=== PATIENT | female | born 1990 | race American Indian/Alaskan Native ===

== ENCOUNTER 2018-08-28 12:58 | Emergency (ER) | payer MEDICAID, OTHER ==
[2018-08-28 13:33] VITALS: BP 150/94
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
== END 2018-08-28 15:51 | disposition home or self-care (01) ==
LOC: ED 12:58
DX: M54.9 Dorsalgia, unspecified (principal); V49.49XA Driver injured in collision with other motor vehicles in traffic accident, initial encounter; X58.XXXA Exposure to other specified factors, initial encounter; Y93.89 Activity, other specified; Y92.89 Other specified places as the place of occurrence of the external cause; Y99.8 Other external cause status

== ENCOUNTER 2020-10-11 08:52 | Inpatient (IN) | payer OTHER ==
[2020-10-11] MEDS ORDERED: DINOPROSTONE 10 MG VAG SUPP VG NR (11:27)
[2020-10-11] MEDS ORDERED: TERBUTALINE 1 MG/1 ML INJ SUB-Q PRN (11:27)
[2020-10-11] MEDS ORDERED: miSOPROStol 200 MCG TAB PR PRN (11:27)
[2020-10-11] MEDS ORDERED: fentaNYL 100 MCG/2 ML INJ IV PRN (11:27)
[2020-10-11] MEDS ORDERED: MINERAL OIL 30 ML ORAL LIQD PO PRN (11:27)
[2020-10-11] MEDS ORDERED: BUTORPHANOL 2 MG/1 ML INJ IV PRN ×2 (11:27)
[2020-10-11] MEDS ORDERED: ePHEDrine SULFATE 50 MG/1 ML INJ IV PRN ×2 (11:27→19:29)
[2020-10-11] MEDS ORDERED: METHYLERGONOVINE MALEATE 0.2 MG/ML VIAL IM PRN (11:27)
[2020-10-11] MEDS ORDERED: CARBOPROST TROMETHAMINE 250 MCG/1 ML INJ IM PRN (11:27)
[2020-10-11] MEDS ORDERED: LIDOCAINE (2%) 20 MG/1 ML VIAL 20 ML MDV INFILTRATI ONE (11:27)
[2020-10-11] MEDS ORDERED: OXYTOCIN 10 UNIT/1 ML INJ IM PRN (11:27)
[2020-10-11] MEDS ORDERED: LOPERAMIDE 2 MG CAP PO PRN (11:27)
[2020-10-11] MEDS ORDERED: AMPICILLIN/NS 2 GM/100 ML 2 GM/100 ML BAG IV ONE ×2 (11:27→20:00)
[2020-10-11] MEDS ORDERED: OXYTOCIN DRIP 30 UNITS/500 ML BAG IV SCH ×2 (12:00)
--- NOTE | 2020-10-11 12:13 | History and Physical Report ---
History of Present Illness Date of examination: 10/11/20 Date of admission: 10/11/20 08:52 Chief complaint: " I was sent by my doctor for an induction" History of present illness: 30 y/o single AA presents today @ 37.3 wks for an IOL r/t GDM and morbid obesity. Pt initiated her pnc @ 9 6/7 wks at [facility]. She has a long med which includes GDM takes Metformin and Insulin, morbid obesity, asthma uses Albuterol inhaler, Bipolar disorder (no meds, suicide attemp x 2 teenager), Hgb C trait, + HSV, + GBS, chtn, varicella NI, and hx pre- eclampsia. Neg surgical hx. Family hx of Bipolar, heart disease, htn, autism, anemia, and hyperlipidemia. Pt was admitted to L&D for a cervical IOL. 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 History: herpes, other (GBS) Family/Genetic History: heart disease, hypertension, cancer, other (BIPOLAR DISORDER, ANEMIA, HYPERLIPIDEMIA, AUTISM) Social history: single, full code - Obstetrical History Expected Date of Delivery: 10/29/20 Actual Gestation: 37 Week(s) 3 Day(s) : 2 Para: 1 Hx # Term Pregnancies: 1 Number of Living Children: 1 Medications and Allergies Allergies Allergy/AdvReac Type Severity Reaction Status Date / Time No Known Allergies Allergy Verified 10/11/20 10:07 Home Medications Medication Instructions Recorded Confirmed Last Taken Type Lancets 0 box AD 1XW PRN 05/08/13 05/08/13 05/04/13 12:00 History Pnv,Calcium 72/Iron,Carb/Folic 1 tab PO DAILY 05/08/13 05/08/13 05/04/13 10:00 History [ Plus Iron Tablet] glyBURIDE [Glyburide] 1 tab PO DAILY 05/08/13 05/08/13 05/04/13 History 2.5mg Acetaminophen/Codeine [Tylenol 1 tab PO Q6H PRN #15 tab 08/28/18 Unknown Rx /Codeine # 3 tab] Cyclobenzaprine HCl [Flexeril 5 MG 5 mg PO BID PRN #10 tab 08/28/18 Unknown Rx TAB] Ibuprofen [Motrin] 800 mg PO Q8HR PRN #30 tablet 08/28/18 Unknown Rx predniSONE [Deltasone] 20 mg PO DAILY #15 tablet 08/28/18 Unknown Rx Active Meds: Active Medications Butorphanol Tartrate (Butorphanol 2 Mg/1 Ml Inj) 1 mg IV Q2H PRN PRN Reason: Pain, Moderate(4-6) LABOR PAIN Butorphanol Tartrate (Butorphanol 2 Mg/1 Ml Inj) 2 mg IV Q2H PRN PRN Reason: Pain , Severe (7-10) Carboprost Tromethamine (Carboprost Tromethamine 250 Mcg/1 Ml Inj) 250 mcg IM ONCE PRN PRN Reason: Uterine Bleeding Dinoprostone (Dinoprostone 10 Mg Vag Supp) 10 mg VG ONCE ONE Stop: 10/11/20 11:28 Ephedrine Sulfate (Ephedrine Sulfate 50 Mg/1 Ml Inj) 10 mg IV Q2M PRN PRN Reason: Hypotension Fentanyl (Fentanyl 100 Mcg/2 Ml Inj) 100 mcg IV Q2H PRN PRN Reason: Pain,Severe (7-10) LABOR PAIN Oxytocin/Sodium Chloride (Pitocin/Ns 30 Unit/500ml) 30 units in 500 mls @ 2 mls/hr IV TITR TANIKA; Protocol Lactated Ringer's (Lactated Ringers) 1,000 mls @ 125 mls/hr IV DIRECT TANIKA Oxytocin/Sodium Chloride (Pitocin/Ns 30 Unit/500ml) 30 units in 500 mls @ 40 mls/hr IV TITR TANIKA; Protocol Ampicillin Sodium (Ampicillin/Ns 2 Gm/100 Ml) 2 gm in 100 mls @ 100 mls/hr IV ONCE ONE; Protocol Stop: 10/11/20 12:26 Ampicillin Sodium (Ampicillin/Ns 1 Gm/50 Ml) 1 gm in 50 mls @ 100 mls/hr IV Q4H TANIKA; Protocol Lidocaine (Lidocaine (2%) 20 Mg/1 Ml Vial 20 Ml Mdv) 20 ml INFILTRATI ONCE ONE Stop: 10/11/20 11:28 Loperamide HCl (Loperamide 2 Mg Cap) 2 mg PO ONCE PRN PRN Reason: give with Hemabate Methylergonovine Maleate (Methylergonovine Maleate 0.2 Mg/Ml Vial) 0.2 mg IM ONCE PRN PRN Reason: Uterine Bleeding Mineral Oil (Mineral Oil 30 Ml Oral Liqd) 30 ml PO QHS PRN PRN Reason: Constipation Misoprostol (Misoprostol 200 Mcg Tab) 800 mcg WA ONCE PRN PRN Reason: Uterine Bleeding Oxytocin (Oxytocin 10 Unit/1 Ml Inj) 10 unit IM ONCE PRN PRN Reason: Uterine Bleeding Terbutaline Sulfate (Terbutaline 1 Mg/1 Ml Inj) 0.25 mg SUB-Q ONCE PRN PRN Reason: Hyperstimulation/Hypertonicity Review of Systems All systems: negative Eyes: deferred Ears, nose, mouth and throat: deferred Breasts: normal Genitourinary: normal appearance Rectal Exam: deferred - Vital Signs Vital signs: Vital Signs Pulse BP 88 114/70 10/11/20 09:42 10/11/20 09:42 Temp Pulse Resp BP Pulse Ox 97.7 F 83 20 116/69 98 10/11/20 09:44 10/11/20 11:49 10/11/20 09:44 10/11/20 11:47 10/11/20 11:49 - Physical Exam Breasts: Positive: normal Abdomen: Positive: normal appearance, soft, normal bowel sounds, other (GRAVID) Genitourinary (Female): Positive: normal external genitalia, normal perenium Vulva: both: normal Vagina: Positive: normal moisture Uterus: Positive: enlarged, normal contour, other (GRAVID) Anus/Rectum: Positive: normal perianal skin Extremities: Positive: normal - Obstetrical FHR: auscultation normal, category 1 Uterine Contraction Monitor Mode: External Cervical Dilatation: 1.5 Cervical Effacement Percentage: 60 station: -4 Uterine Contraction Pattern: Irregular Uterine Tone Measurement Phase: Resting Uterine Contraction Intensity: Mild Results All other labs normal. Assessment and Plan A: IUP@ 37.3 wks Morbid obesity, GDM (Metformin and Insulin) Asthma uses Albuterol prn Bipolar Disorder (no meds, suicide attempt x 2 teenager) Hgb C trait Varicella NI HSV II +GBS CHTN, Hx preeclampsia Son with Autism p: Admit to L&D for cervidil IOL Continuos monitoring GBS protocal Baseline PIH labs Notify NICU MD to manage GDM Offer Varicella vaccine pp Mental health consult pp Anticipate - Patient Problems (1) Supervision of normal IUP (intrauterine ) in multigravida Current Visit: Yes Status: Acute (2) Hypertension Current Visit: Yes Status: Acute (3) GDM (gestational diabetes mellitus) Current Visit: Yes Status: Acute (4) Bipolar 1 disorder Current Visit: Yes Status: Acute (5) Asthma Current Visit: Yes Status: Acute (6) Maternal varicella, non-immune Current Visit: Yes Status: Acute (7) HSV (herpes simplex virus) anogenital infection Current Visit: Yes Status: Acute (8) Hemoglobin C trait Current Visit: Yes Status: Acute
[2020-10-11] MEDS ORDERED: DEXTROSE 50% IN WATER (25GM) 50 ML SYRINGE IV PRN (12:50)
[2020-10-11 13:52] LABS: Mean Corpuscular HGB Conc 37 % (30-34); Mean Corpuscular Volume 83 fl (79-97); Platelet Count 251 K/mm3 (140-440); Red Blood Count 4.17 M/mm3 (3.65-5.03); Red Cell Distribution Width 13.5 % (13.2-15.2)
[2020-10-11 13:58] LABS: Hematocrit 34.6 % (30.3-42.9); Hemoglobin 12.7 gm/dl (10.1-14.3)
[2020-10-11 14:15] LABS: Alanine Aminotransferase 17 units/L (7-56); Uric Acid 4.4 mg/dL (3.5-7.6)
[2020-10-11] MEDS ORDERED: AMPICILLIN/NS 1 GM/50 ML 1 GM/50 ML BAG IV SCH (16:00)
[2020-10-11] MEDS: LACTATED RINGERS 1,000 ML IV SCH ×2 (19:25→20:16)
[2020-10-11] MEDS ORDERED: NALOXONE 2 MG/2 ML INJ IV PRN (19:29)
--- NOTE | 2020-10-11 19:29 | Anesthesia Consultation ---
Anesthesia Consult and Med Hx Date of service: 10/11/20 - Airway Anesthetic Teeth Evaluation: Good ROM Head & Neck: Adequate Mental/Hyoid Distance: Adequate Mallampati Class: Class II Intubation Access Assessment: Probably Good - Pulmonary Exam CTA: Yes - Cardiac Exam Cardiac Exam: RRR - Pre-Operative Health Status ASA Pre-Surgery Classification: ASA3 Proposed Anesthetic Plan: Epidural - Pulmonary Hx Asthma: Yes COPD: No Hx Pneumonia: No - Cardiovascular System Hx Hypertension: Yes - Central Nervous System Hx Seizures: No Hx Psychiatric Problems: No - Endocrine Hx Renal Disease: No Hx End Stage Renal Disease: No Hx Insulin Dependent Diabetes: Yes Hx Hypothyroidism: No Hx Hyperthyroidism: No - Hematic Hx Anemia: No Hx Sickle Cell Disease: No - Other Systems Hx Alcohol Use: No Hx Obesity: Yes
[2020-10-11] MEDS ORDERED: fentaNYL-BUPIV 2 MCG/ML-0.125% 200 MCG/100 ML BAG EPIDURAL SCH (20:00)
[2020-10-11] MEDS: INSULIN REGULAR, HUMAN 100 UNITS/1 ML SUB-Q PRN (20:13)
[2020-10-12] MEDS ORDERED: AMPICILLIN/NS 1 GM/50 ML 1 GM/50 ML BAG IV SCH
[2020-10-12] MEDS: LACTATED RINGERS 1,000 ML IV SCH ×3 (02:54→14:04)
[2020-10-12] MEDS ORDERED: AMPICILLIN/NS 2 GM/100 ML 2 GM/100 ML BAG IV ONE (12:00)
--- NOTE | 2020-10-12 13:42 | Progress Note ---
Labor Epidural - Labor Epidural Start Time: 13:11 Stop Time: 13:33 Performed by:: YAMILE BRAVO Procedure: Patient is requesting epidural for labor pain. H&P, and labs reviewed. Procedure explained, questions answered, consent obtained. Patient in sitting position with blood pressure cuff and pulse ox on and working. Timeout performed immediately before start of procedure. Sterile chlorahexadine 0.5% prep/drape. 3 mL 1% lidocaine skin wheal at L[3]-L[4]. 18-gauge [place] epidural needle advanced to [id number] with saline at 9 cm. Epidural catheter advanced to 15 cm, negative aspiration for blood and csf, negative test dose 3 ml 1.5% lidocaine with epinephrine. Epidural dexmedetomidine [30] mcg administered. Sterile steri-strips and tegaderm applied, followed by tape reinforcement. Patient tolerated procedure well. Lam ELLIS
--- NOTE | 2020-10-12 17:32 | Event Note ---
Date: 10/12/20 Assumed care of patient. SVE /-1.
[2020-10-12] MEDS ORDERED: LANOLIN/ZINC/DIMETHICONE (LANSINOH) 7 GM TP PRN (19:16)
[2020-10-12] MEDS ORDERED: PROMETHAZINE 25 MG TAB PO PRN (19:16)
[2020-10-12] MEDS ORDERED: diphenhydrAMINE 25 MG CAP PO PRN (19:16)
[2020-10-12] MEDS ORDERED: WITCH HAZEL/ GLYCERIN PAD TP PRN (19:16)
[2020-10-12] MEDS ORDERED: MAGNESIUM HYDROXIDE (MOM) ORAL LIQD UDC PO PRN (19:16)
[2020-10-12] MEDS ORDERED: ONDANSETRON 4 MG/2 ML INJ IV PRN (19:16)
[2020-10-12] MEDS ORDERED: PROMETHAZINE 25 MG RECT SUPP PR PRN (19:16)
[2020-10-12] MEDS ORDERED: miSOPROStol 200 MCG TAB PR ONE (19:20)
[2020-10-12] MEDS ORDERED: METHYLERGONOVINE MALEATE 0.2 MG/ML VIAL IM ONE (19:21)
--- NOTE | 2020-10-12 19:35 | Procedure Note ---
OB Delivery Note - Delivery Date of Delivery: 10/12/20 Surgeon: MARYANNE CID Estimated blood loss: 500cc - Vaginal Delivery presentation: vertex Delivery position: OA Intrapartum events: hemorrhage Delivery induction: oxytocin Delivery monitor: external FHT, external uterine Route of delivery: Delivery placenta: spontaneous Delivery cord: 3 umbilical vessels Delivery laceration: 1st degree Delivery repair: vicryl Anesthesia: epidural Delivery comments: Spontaneous vaginal delivery at 18:41 of liveborn male infant weighing 7 lb. 4 oz. over 1st degree perineal laceration with apgars of 8/9. Epidural anesthesia. Loose nuchal cord times 1, manually reduced. was atraumatic. Baby was placed skin to skin with mom immediately after delivery; spontaneous cry and respirations. Baby suctioned with bulb syringe and dried with warm towels. 3 vessel cord double clamped and cut; baby taken to radiant warmer for further suctioning. Spontaneous delivery of intact placenta and membranes at 18:44; EBL 500 cc (QBL 850 cc per RN). Pitocin, bimanual uterine massage, rectal Cytotec, and IM Methergine given for uterine atony. Fundus now firm and midline and lochia is scant. First degree perineal laceration repaired with 2-0 vicryl. No other lacerations noted. Vaginal sweep negative. Sponge count correct. Stat H&H ordered. Mother and baby stable.
[2020-10-12] MEDS ORDERED: IBUPROFEN 600 MG TAB PO SCH (20:00)
[2020-10-12 20:21] LABS: Hematocrit 34.8 % (30.3-42.9); Hemoglobin 12.3 gm/dl (10.1-14.3)
[2020-10-13] MEDS: HYDROcodone/ACETAMINOPHEN 5-325 MG TAB PO PRN ×4 (00:56→23:55)
[2020-10-13] MEDS: INSULIN REGULAR, HUMAN 100 UNITS/1 ML SUB-Q PRN (00:57)
[2020-10-13] MEDS: FERROUS SULFATE 325 MG TAB PO SCH ×3 (00:57→21:29)
[2020-10-13 09:15] LABS: Hemoglobin 12.5 gm/dl (10.1-14.3)
--- NOTE | 2020-10-13 16:41 | Post Anesthesia Evaluation ---
- Post Anesthesia Evaluation Patient Participated: Yes Airway Patent: Yes Stable Respiratory Function: Yes Nausea/Vomiting: No Temp > 96.8F: Yes Pain Manageable: Yes Adequeate Hydration: Yes Anesthesia Complications: No Block Receding Appropriately: Yes Patient on Ventilator: No
--- NOTE | 2020-10-13 17:34 | Progress Note ---
Assessment and Plan PPD #1 A: S/P P: Continue routine pp care D/C home tomm if stable - Patient Problems (1) Supervision of normal IUP (intrauterine ) in multigravida Current Visit: Yes Status: Acute (2) Hypertension Current Visit: Yes Status: Acute (3) GDM (gestational diabetes mellitus) Current Visit: Yes Status: Acute (4) Bipolar 1 disorder Current Visit: Yes Status: Acute (5) Asthma Current Visit: Yes Status: Acute (6) Maternal varicella, non-immune Current Visit: Yes Status: Acute (7) HSV (herpes simplex virus) anogenital infection Current Visit: Yes Status: Acute (8) Hemoglobin C trait Current Visit: Yes Status: Acute Subjective - Subjective Date of service: 10/13/20 Principal diagnosis: s/p Interval history: 30 y/o single AA presents today @ 37.3 wks for an IOL r/t GDM and morbid obesity. Pt initiated her pnc @ 9 6[address] [facility]. She has a long med which includes GDM takes Metformin and Insulin, morbid obesity, asthma uses Albuterol inhaler, Bipolar disorder (no meds, suicide attemp x 2 teenager), Hgb C trait, + HSV, + GBS, chtn, varicella NI, and hx pre- eclampsia. Neg surgical hx. Family hx of Bipolar, heart disease, htn, autism, anemia, and hyperlipidemia. Pt was admitted to L&D for a cervical IOL. Labs: A pos AB screen neg Rubella Immune Varicella NI VDRL/HIV neg GC/Chly/Trich/ HBsAg neg Plt 316 H&H 13.5/39.5 Patient reports: appetite normal, voiding normally, pain well controlled, ambulating normally : doing well Objective - Vital Signs Latest vital signs: Vital Signs Temp Pulse Resp BP BP Pulse Ox 10/13/20 17:11 16 10/13/20 12:37 98.1 F 94 H 20 127/78 100 10/13/20 09:31 16 10/13/20 08:51 97.8 F 88 20 119/76 100 10/13/20 05:16 98.5 F 20 128/83 10/13/20 05:15 86 100 10/13/20 00:08 98.2 F 88 20 115/69 100 10/12/20 20:55 97.9 F 83 20 136/80 100 10/12/20 20:20 84 132/67 10/12/20 20:06 86 129/60 10/12/20 19:45 86 123/70 10/12/20 19:15 98.5 F 19 10/12/20 19:05 90 114/69 10/12/20 18:56 93 H 113/62 10/12/20 18:45 98.4 F 10/12/20 18:38 140 H 100 10/12/20 18:37 122 H 140/63 10/12/20 18:33 152 H 99 10/12/20 18:30 14 10/12/20 18:29 38 L 0 L 10/12/20 18:28 92 H 100 10/12/20 18:23 85 100 10/12/20 18:18 82 100 10/12/20 18:13 87 100 10/12/20 18:08 84 119/71 100 10/12/20 18:03 92 H 100 10/12/20 17:58 89 99 10/12/20 17:53 91 H 99 10/12/20 17:48 84 99 10/12/20 17:43 92 H 98 10/12/20 17:38 95 H 144/81 98 10/12/20 17:37 92 H 94 10/12/20 17:33 92 H 96 Intake and Output 10/13/20 10/13/20 10/13/20 06:59 14:59 22:59 Intake Total 240 360 Output Total 1200 800 Balance -960 -440 Intake: Oral 240 360 Output: Urine 1200 800 Void 1200 800 Other: Total, Intake Amount 240 240 Total, Output Amount 600 800 # Voids Void 1 1 - Exam Breasts: Present: normal Abdomen: Present: normal appearance, soft, normal bowel sounds Vulva: both: normal Uterus: Present: normal, firm, fundal height below umbilicus Extremities: Present: normal Incision: Present: normal, intact - Labs Labs: Abnormal lab results 10/13/20 10/13/20 10/13/20 Range/Units 00:11 05:09 09:36 POC Glucose 204 H 116 H 118 H (70-105) mg/dL 10/13/20 Range/Units 15:21 POC Glucose 137 H (70-105) mg/dL
[2020-10-14] MEDS: HYDROcodone/ACETAMINOPHEN 5-325 MG TAB PO PRN (05:14)
[2020-10-14] MEDS: FERROUS SULFATE 325 MG TAB PO SCH (11:54)
--- NOTE | 2020-10-14 13:27 | Progress Note ---
Assessment and Plan A: day 2 S/P . Gestational diabetes. Obesity. P: Discharge patient home today. Discussed with patient discharge in structions and warning signs. Advised patient to continue taking her vitamins at home. Advised patient to avoid intercourse, lifting, housework. Advised patient to follow up at [facility] in 1 week. Patient voiced understanding of all instructions. Subjective - Subjective Date of service: 10/14/20 Principal diagnosis: day 2 S/P Patient reports: appetite normal, voiding normally, pain well controlled, flatus, ambulating normally, no dizzy ambulation, no nauseated [place]: doing well Objective - Vital Signs Latest vital signs: Vital Signs Temp Pulse Resp BP BP Pulse Ox 10/14/20 08:00 98.7 F 75 18 127/77 98 10/14/20 00:56 98.1 F 82 20 133/77 97 10/13/20 17:11 16 Intake and Output 10/13/20 10/14/20 10/14/20 23:59 07:59 15:59 Intake Total 240 240 Balance 240 240 Intake: Oral 240 240 Other: Total, Intake Amount 240 240 # Voids Void 1 1 - Exam Cardiovascular: Present: Regular rate Lungs: Present: Clear to auscultation Abdomen: Present: normal appearance, soft, normal bowel sounds. Absent: distention, tenderness, guarding, rigidity Uterus: Present: normal, firm, fundal height below umbilicus. Absent: bogginess, tenderness Extremities: Present: normal. Absent: tenderness, edema - Labs Labs: Abnormal lab results 10/13/20 10/13/20 10/14/20 Range/Units 15:21 21:35 08:59 POC Glucose 137 H 106 H 113 H (70-105) mg/dL
--- NOTE | 2020-10-14 13:32 | Discharge Summary ---
Providers - Providers Date of Admission: 10/11/20 08:52 Date of discharge: 10/14/20 Attending physician: NABIL MADERA JR, MD Primary care physician: NABIL MADERA JR, MD Hospitalization Reason for admission: induction of labor Delivery: Episiotomy: none Laceration: 1st degree Other procedures: none Discharge diagnosis: IUP at term delivered [place] baby: male Pertinent studies: Labs Hospital course: Stable hospital course Condition at discharge: Good Disposition: DC-01 TO HOME OR SELFCARE - Discharge Diagnoses (1) Term delivered Status: Acute Plan - Provider Discharge Summary Activity: routine, no sex for 6 weeks, no heavy lifting 4 weeks, no strenuous exercise Diet: routine Instructions: routine Additional instructions: Follow up at [facility] in 48 hours. Call your doctor immediately for: * Fever > 100.5 * Heavy vaginal bleeding ( >1 pad per hour) * Severe persistent headache * Shortness of breath * Reddened, hot, painful area to leg or breast - Follow up plan Follow up: NABIL MADERA JR, MD [Primary Care Provider] - 48 Hours
[2020-10-14 19:58] VITALS: BP 130/75
== END 2020-10-14 18:20 | disposition home or self-care (01) | DRG 774 ==
LOC: LD 08:52 → OB 10-12 20:46
PROVIDERS: ADMIT Obstetrics & Gynecology; ATTEND Obstetrics & Gynecology
PROC: 10E0XZZ Delivery of Products of Conception, External Approach (ICD-10-PCS; principal; 2020-10-12)
PROC: 0HQ9XZZ Repair Perineum Skin, External Approach (ICD-10-PCS; 2020-10-12)
PROC: 3E0R3BZ Introduction of Anesthetic Agent into Spinal Canal, Percutaneous Approach (ICD-10-PCS; 2020-10-12)
PROC: 00HU33Z Insertion of Infusion Device into Spinal Canal, Percutaneous Approach (ICD-10-PCS; 2020-10-12)
PROC: 3E033VJ Introduction of Other Hormone into Peripheral Vein, Percutaneous Approach (ICD-10-PCS; 2020-10-12)
DX: O99.824 Streptococcus B carrier state complicating childbirth (principal); O98.52 Other viral diseases complicating childbirth; Z3A.37 37 weeks gestation of pregnancy; Z37.0 Single live birth; Z20.822 Contact with and (suspected) exposure to COVID-19; O99.52 Diseases of the respiratory system complicating childbirth; O99.344 Other mental disorders complicating childbirth; O99.214 Obesity complicating childbirth; E66.01 Morbid (severe) obesity due to excess calories; O69.81X0 Labor and delivery complicated by cord around neck, without compression, not applicable or unspecified; O24.425 Gestational diabetes mellitus in childbirth, controlled by oral hypoglycemic drugs; J45.909 Unspecified asthma, uncomplicated; B00.9 Herpesviral infection, unspecified; O70.0 First degree perineal laceration during delivery; F31.9 Bipolar disorder, unspecified; Z82.49 Family history of ischemic heart disease and other diseases of the circulatory system; Z83.438 Family history of other disorder of lipoprotein metabolism and other lipidemia; Z81.8 Family history of other mental and behavioral disorders; D57.3 Sickle-cell trait; O62.2 Other uterine inertia
CPT/HCPCS: 36415; 59200; 82565; 82962; 83615; 84450; 84460; 84550; 85014; 85018; 85027; 86592; 86850; 86900; 86901; G0378; J0290; J1815; J2210; J2590; J7120; U0003